=== PATIENT | female | born 1985 | race African-American/Black ===

== ENCOUNTER 2021-06-21 15:17 | Emergency (ER) | payer OTHER ==
[~2021-06-21] VITALS: Ht 149.9 cm; Wt 39.9 kg
== END 2021-06-21 18:35 | disposition home or self-care (01) ==
LOC: ER 15:17
DX: S62.605A Fracture of unspecified phalanx of left ring finger, initial encounter for closed fracture (principal); Y92.019 Unspecified place in single-family (private) house as the place of occurrence of the external cause; X58.XXXA Exposure to other specified factors, initial encounter

== ENCOUNTER 2021-08-01 13:22 | Emergency (ER) | payer OTHER ==
[~2021-08-01] VITALS: Ht 149.9 cm; Wt 39.5 kg
[2021-08-01] MEDS ORDERED: BACTRIM DS TAB1 EACH PO (17:33)
[2021-08-01] MEDS ORDERED: FLUCONAZOLE150 MG PO (17:33)
== END 2021-08-01 17:44 | disposition home or self-care (01) ==
LOC: ER 13:22
DX: N39.0 Urinary tract infection, site not specified (principal); N30.00 Acute cystitis without hematuria

== ENCOUNTER 2022-02-07 19:27 | Emergency (ER) | payer OTHER ==
[~2022-02-07] VITALS: Ht 149.9 cm; Wt 39.0 kg
[~2022-02-07 19:27] MED LIST: BACTRIM DS TAB1 EACH PO; FLUCONAZOLE150 MG PO
== END 2022-02-07 22:49 | disposition home or self-care (01) ==
LOC: ER 19:27
DX: K29.70 Gastritis, unspecified, without bleeding (principal)

== ENCOUNTER 2022-10-18 10:22 | Emergency (ER) | payer OTHER ==
[~2022-10-18] VITALS: Ht 124.5 cm; Wt 40.8 kg
[2022-10-18] MEDS ORDERED: CEPHALEXIN500 M1 PO (12:32)
== END 2022-10-18 12:47 | disposition home or self-care (01) ==
LOC: ER 10:22
DX: S21.211A Laceration without foreign body of right back wall of thorax without penetration into thoracic cavity, initial encounter (principal); W25.XXXA Contact with sharp glass, initial encounter; Y93.9 Activity, unspecified; Y92.89 Other specified places as the place of occurrence of the external cause; Y99.9 Unspecified external cause status
CPT/HCPCS: 90471; 90714; J1670

== ENCOUNTER 2024-01-18 20:24 | Emergency (ER) | payer OTHER ==
[~2024-01-18] VITALS: Ht 149.9 cm; Wt 38.6 kg
[~2024-01-18 20:24] MED LIST changes: +CEPHALEXIN500 M1 PO
[2024-01-18] MEDS ORDERED: TETANUS & DIPHTHERIA TOX,ADULT 0.5 ML VIAL IM ONE (21:00)
[2024-01-18] MEDS ORDERED: AMOX-CLAV 875-1 EACH PO (21:06)
== END 2024-01-18 22:08 | disposition home or self-care (01) ==
LOC: ER 20:26
DX: S91.051A Open bite, right ankle, initial encounter (principal); W54.0XXA Bitten by dog, initial encounter; Y93.89 Activity, other specified; Y92.488 Other paved roadways as the place of occurrence of the external cause